=== PATIENT | male | born 1995 | race Caucasian/White ===

== ENCOUNTER 2023-01-14 16:24 | Emergency (ER) | payer OTHER ==
[~2023-01-14] VITALS: Ht 182.9 cm; Wt 74.4 kg
[2023-01-14 17:27] LABS: RSV AMPLIFICATION NEGATIVE (NEGATIVE)
[2023-01-14] MEDS ORDERED: IBUP-1022 PO (17:59)
[2023-01-14 18:05] VITALS: BP 129/77; TEMP 99.3; O2SAT 98
== END 2023-01-14 18:05 | disposition home or self-care (01) ==
LOC: M ED 16:24
DX: J02.9 Acute pharyngitis, unspecified (principal); Z79.1 Long term (current) use of non-steroidal anti-inflammatories (NSAID)